=== PATIENT | female | born 1995 | race African-American/Black ===

== ENCOUNTER 2017-02-23 20:31 | Emergency (ER) | payer OTHER ==
[~2017-02-23] VITALS: Ht 177.8 cm; Wt 100.0 kg
[~2017-02-23 20:31] MED LIST: IBUPROFEN800 M1 PO; PRENATAL CAPLE1 EACH PO; PRENATAL TABLE1 EAC4 PO; PRENATAL-U CAPS1 CAP PO
[2017-02-23] MEDS ORDERED: IBUPROFEN600 M1 PO (21:29)
== END 2017-02-23 21:30 ==
LOC: EDMED → EDBD 20:31 → EDMED 21:30
DX: M54.6 Pain in thoracic spine (principal); V49.40XA Driver injured in collision with unspecified motor vehicles in traffic accident, initial encounter; Y92.410 Unspecified street and highway as the place of occurrence of the external cause